=== PATIENT | male | born 1990 | race African-American/Black ===

== ENCOUNTER 2016-07-05 11:30 | Emergency (ER) | payer SELFPAY ==
[2016-07-05 11:35] VITALS: BP 126/73
--- NOTE | 2016-07-05 12:04 | ER Document Report ---
ED Medical Screen (RME) - General Stated Complaint: HEADACHE Mode of Arrival: Ambulatory Information source: Patient Notes: Patient presents to the emergency department with complaints of headache for 10 days. Denies trauma I have greeted and performed a rapid initial assessment of this patient. A comprehensive ED assessment and evaluation of the patient, analysis of test results and completion of the medical decision making process will be conducted by additional ED providers. TRAVEL OUTSIDE OF THE [place] 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
[2016-07-05] MEDS ORDERED: IBUPROFEN 600 MG TABLET PO ONE (12:39)
[2016-07-05] MEDS ORDERED: PROCHLORPERAZINE MALEATE 10 MG TABLET PO ONE (12:39)
[2016-07-05] MEDS ORDERED: DIPHENHYDRAMINE HCL 50 MG CAPSULE PO ONE (12:39)
--- NOTE | 2016-07-05 12:45 | ER Document Report ---
ED Headache - General Chief Complaint: Headache Stated Complaint: HEADACHE Time seen by provider: 12:40 Mode of Arrival: Ambulatory Information source: Patient Notes: 25 yo male presents to ed for headache for 9 days . States he has been taking aleve and advil with no relief. Has a history of migraines. TRAVEL OUTSIDE OF THE [place] IN LAST 30 DAYS: No - HPI Patient complains to provider of: "Migraine" Patient reports: Hx chronic headaches Onset: Just prior to arrival Onset was: Cannot pinpoint Timing: Still present Quality of pain: No pain Severity: Severe Pain Level: 5 Associated symptoms: Other Exacerbated by: Light, Noise Similar symptoms previously: Yes Recently seen / treated by doctor: No - Related Data Allergies/Adverse Reactions: No Known Allergies Allergy (Verified 07/05/16 12:05) Past Medical History - General Information source: Patient - Social History Smoking Status: Never Smoker Chew tobacco use (# tins/day): No Frequency of alcohol use: None Drug Abuse: None Lives with: Spouse/Significant other Family History: Arthritis, DM, Hypertension Patient has suicidal ideation: No Patient has homicidal ideation: No - Past Medical History Cardiac Medical History: Reports: None Pulmonary Medical History: Reports: None EENT Medical History: Reports: None Neurological Medical History: Reports: Hx Migraine Endocrine Medical History: Reports: None Renal/ Medical History: Reports: None. Denies: Hx Peritoneal Dialysis Malignancy Medical History: Reports None GI Medical History: Reports: None Musculoskeltal Medical History: Reports Hx Arthritis - to both hands Skin Medical History: Reports Hx MRSA Psychiatric Medical History: Reports: None Traumatic Medical History: Reports: None Infectious Medical History: Reports: Hx MRSA Surgical Hx: Negative Past Surgical History: Reports: None - Immunizations Immunizations up to date: Yes Hx Diphtheria, Pertussis, Tetanus Vaccination: Yes Review of Systems - Review of Systems Constitutional: No symptoms reported EENT: No symptoms reported Cardiovascular: No symptoms reported Respiratory: No symptoms reported Gastrointestinal: No symptoms reported Genitourinary: No symptoms reported Male Genitourinary: No symptoms reported Musculoskeletal: No symptoms reported Skin: No symptoms reported Hematologic/Lymphatic: No symptoms reported Neurological/Psychological: Headaches -: Yes All other systems reviewed and negative Physical Exam - Vital signs Vitals: Temp Pulse Resp BP Pulse Ox 98.3 F 61 16 126/73 H 98 07/05/16 11:34 07/05/16 11:34 07/05/16 11:34 07/05/16 11:34 07/05/16 11:34 Interpretation: Normal - General General appearance: Appears well, Alert - HEENT Head: Normocephalic, Atraumatic Eyes: Normal Pupils: PERRL Visual villagran normal: Yes Ears: Normal External canal: Normal Tympanic membrane: Normal Sinus: Normal Nasal: Normal Mouth/Lips: Normal Pharynx: Normal Neck: Normal - Respiratory Respiratory status: No respiratory distress Chest status: Nontender Breath sounds: Normal Chest palpation: Normal - Cardiovascular Rhythm: Regular Heart sounds: Normal auscultation Murmur: No - Abdominal Inspection: Normal Distension: No distension Bowel sounds: Normal Tenderness: Nontender Organomegaly: No organomegaly - Back Back: Normal, Nontender - Extremities General upper extremity: Normal inspection, Nontender, Normal color, Normal ROM , Normal temperature General lower extremity: Normal inspection, Nontender, Normal color, Normal ROM , Normal temperature, Normal weight bearing. 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 Cranial nerves grossly intact, speaking freely. This able to stand reflexes normal. Patient was treated with Compazine Benadryl and ibuprofen in the emergency room and given a prescription for Compazine and ibuprofen for home use for headaches. Patient instructed to follow-up with his primary doctor within the next 2-3 days. - Vital Signs Vital signs: Temp Pulse Resp BP Pulse Ox 98.3 F 61 16 126/73 H 98 07/05/16 11:34 07/05/16 11:34 07/05/16 11:34 07/05/16 11:34 07/05/16 11:34 Discharge - Discharge Clinical Impression: Migraine Qualifiers: Migraine type: unspecified Status migrainosus presence: without status migrainosus Intractability: not intractable Qualified Code(s): G43.909 - Migraine, unspecified, not intractable, without status migrainosus Condition: Stable Disposition: HOME, SELF-CARE Instructions: Family Physicians / Practices Additional Instructions: HEADACHE: The physician does not feel that the headache you are experiencing has a serious underlying cause. Most headaches are due to emotional stress, with resultant muscle tension (tension headache). Occasionally, headaches are secondary to changes in the blood vessels of the scalp (vascular headache and migraine headache). Sometimes, a headache is the first symptom of another developing illness, such as a viral infection. You have no evidence of stroke, bleeding, meningitis, or other serious cause of your headache. The treatment of headaches varies with the severity and cause of the pain. Not all headaches need pain shots. In fact, there is evidence that using narcotics for headaches may make them worse in the long run. The physician will determine the therapy that's in your best interest. If you develop a fever, if the headache is different from any you've previously experienced, or if the headache progressively worsens, then call your physician at once or go to the emergency room. USE OF DIPHENHYDRAMINE: Diphenhydramine (Benadryl) is an antihistamine and has been recommended to help treat your headache and to prevent side effects of other medications used to treat headaches. The medication can be repeated four times daily. Age Elixir (12.5 mg/tsp) 25 mg pill adult 1-2 tabs Antihistamines may cause drowsiness, especially with the first dose. Do not operate machinery or drive while under the effects of the medication. Do not combine the medication with alcohol, or with any other medication without talking to your doctor. Ibuprofen Ibuprofen is an excellent, safe drug for pain control. In addition, it has potent antiinflammatory effects which are beneficial, especially in the treatment of injuries, arthritis, or tendonitis. It's best to take ibuprofen with food. Persons with ulcer disease or allergy to aspirin should notify their physician of this before taking ibuprofen. Take the medication exactly as prescribed. Don't take additional doses unless instructed to do so by your doctor. If you develop wheezing, shortness of breath, hives, faintness, stomach pain, vomiting, or dark black stools, return for re-evaluation at once. COMPAZINE FOR HEADACHE: You have received therapy for headaches, using Compazine. This treatment is dramatically successful in relieving the headache in about 50 percent of cases. When it works, it provides a rapid method of eliminating the headache without resorting to narcotics (and the problems associated with them). Most patients still feel fully alert after the Compazine, but others may be slightly drowsy. It's best not to drive or work with machinery for six to eight hours. Do not take alcohol or other medication unless you discuss it with the doctor. If you develop tightness and spasms in your muscles, especially the neck and tongue, you should return. This is a side effect which can be treated. FOLLOW-UP CARE: If you have been referred to a physician for follow-up care, call the physician s office for an appointment as you were instructed or within the next two days. If you experience worsening or a significant change in your symptoms, notify the physician immediately or return to the Emergency Department at any time for re-evaluation. Prescriptions: Ibuprofen 600 mg PO Q6HP PRN #20 tablet PRN Reason: Prochlorperazine Maleate [Compazine 10 mg Tablet] 10 mg PO Q6HP PRN #10 tablet PRN Reason: Forms: Elevated Blood Pressure, Return to Work
== END 2016-07-05 12:59 | disposition home or self-care (01) ==
LOC: ER 11:30
DX: G43.909 Migraine, unspecified, not intractable, without status migrainosus (principal)
CPT/HCPCS: 99283; 82962; S0183

== ENCOUNTER 2016-07-12 17:36 | Emergency (ER) | payer SELFPAY ==
[2016-07-12 18:14] VITALS: BP 118/68
[2016-07-12] MEDS ORDERED: METOCLOPRAMIDE HCL 10 MG TABLET PO ONE (18:19)
[2016-07-12] MEDS ORDERED: DIPHENHYDRAMINE HCL 25 MG CAPSULE PO ONE (18:19)
--- NOTE | 2016-07-12 18:26 | ER Document Report ---
ED Medical Screen (RME) - General Chief Complaint: Headache Stated Complaint: HEADACHE Mode of Arrival: Ambulatory Information source: Patient Notes: 25 y/o M presents to ED c/o intermittently persistent headache over the last 2 weeks. Reports hx of migraine headaches. States was seen in ED 4 days ago but states symptoms not improved. I have greeted and performed a rapid initial assessment of this patient. A comprehensive ED assessment and evaluation of the patient, analysis of test results and completion of the medical decision making process will be conducted by additional ED providers. TRAVEL OUTSIDE OF THE [place] 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 - to both hands Skin Medical History: Reports Hx MRSA Infectious Medical History: Reports: Hx MRSA - Immunizations Immunizations up to date: Yes Hx Diphtheria, Pertussis, Tetanus Vaccination: Yes Physical Exam - Vital signs Vitals: Temp Pulse Resp BP Pulse Ox 98.9 F 69 14 118/68 98 07/12/16 18:14 07/12/16 18:14 07/12/16 18:14 07/12/16 18:14 07/12/16 18:14 - General General appearance: Appears well, Alert In distress: None - Neurological Neuro grossly intact: Yes Cognition: Normal Orientation: AAOx4 [place] Coma Scale Eye Opening: Spontaneous Christa Coma Scale Verbal: Oriented Christa Coma Scale Motor: Obeys Commands [place] Coma Scale Total: 15 Speech: Normal Motor strength normal: LUE, RUE, LLE, RLE Course - Vital Signs Vital signs: Temp Pulse Resp BP Pulse Ox 98.9 F 69 14 118/68 98 07/12/16 18:14 07/12/16 18:14 07/12/16 18:14 07/12/16 18:14 07/12/16 18:14
== END 2016-07-12 21:00 | disposition left against medical advice (07) ==
LOC: ER 17:36
DX: R51 Headache (principal); Z86.69 Personal history of other diseases of the nervous system and sense organs; Z86.14 Personal history of Methicillin resistant Staphylococcus aureus infection; Z53.20 Procedure and treatment not carried out because of patient's decision for unspecified reasons
CPT/HCPCS: 99281

== ENCOUNTER 2016-10-17 13:49 | Emergency (ER) | payer SELFPAY ==
[2016-10-17 13:58] VITALS: BP 132/80
--- NOTE | 2016-10-17 14:23 | ER Document Report ---
HPI - HPI Patient complains to provider of: insect bite Onset: Yesterday Onset/Duration: Sudden Quality of pain: Achy Pain Level: 2 Associated Symptoms: None Exacerbated by: Denies Relieved by: Denies Similar symptoms previously: No Recently seen / treated by doctor: No - REPRODUCTIVE Reproductive: DENIES: : - DERM Skin Color: Normal Past Medical History - General Information source: Patient - Social History Smoking Status: Unknown if Ever Smoked Cigarette use (# per day): No Frequency of alcohol use: None Drug Abuse: None Family History: Arthritis, DM, Hypertension Patient has suicidal ideation: No Patient has homicidal ideation: No Neurological Medical History: Reports: Hx Migraine Renal/ Medical History: Denies: Hx Peritoneal Dialysis Musculoskeltal Medical History: Reports Hx Arthritis - to both hands Skin Medical History: Reports Hx MRSA Infectious Medical History: Reports: Hx MRSA - Immunizations Immunizations up to date: Yes Hx Diphtheria, Pertussis, Tetanus Vaccination: Yes Vertical Provider Document - CONSTITUTIONAL Agree With Documented VS: Yes Exam Limitations: No Limitations General Appearance: WD/WN, No Apparent Distress - INFECTION CONTROL TRAVEL OUTSIDE OF THE [place] IN LAST 30 DAYS: No - HEENT HEENT: Atraumatic, Normocephalic - NECK Neck: Supple - RESPIRATORY Respiratory: No Respiratory Distress O2 Sat by Pulse Oximetry: 97 - CARDIOVASCULAR Cardiovascular: Regular Rate - MUSCULOSKELETAL/EXTREMETIES Musculoskeletal/Extremeties: MAEW, FROM, Non-Tender - Slightly swollen erythemic area noted to the right volar area of his forearm. No pustule no induration no warmth, good radial pulse, brisk cap refill - NEURO Level of Consciousness: Awake, Alert, Appropriate - DERM Integumentary: Warm, Dry Course - Re-evaluation Re-evalutation: 10/17/16 14:36 Pt instructed on Benadryl. Patient also was instructed on signs and symptoms of an abscess and instructed to return to the emergency department for symptoms of infection. He verbalized understanding to all instructions. - Vital Signs Vital signs: Temp Pulse Resp BP Pulse Ox 99.1 F 79 14 132/80 H 97 10/17/16 13:56 10/17/16 13:56 10/17/16 13:56 10/17/16 13:56 10/17/16 13:56 Discharge - Discharge Clinical Impression: Insect bite, Elevated blood pressure reading Condition: Stable Disposition: HOME, SELF-CARE Instructions: Insect Bites ([facility]), Use of Diphenhydramine Additional Instructions: *You have been treated for a insect bite *Take benadryl as indicated *Monitor the site for signs of infection such as increasing pain, redness, swelling, warmth *Ice packs *Follow up with a primary care provider within one week for recheck *Return to ED for signs of infection, worsening condition, changes, needs Monitor your blood pressure. Your blood pressure was elevated today. This may be because you were anxious, in pain or because you need medication. It is important to follow up with your primary care provider for full evaluation. Forms: Elevated Blood Pressure
[2016-10-17] MEDS ORDERED: DIPHENHYDRAMINE HCL 25 MG CAPSULE PO ONE (14:25)
== END 2016-10-17 14:30 | disposition home or self-care (01) ==
LOC: ER 13:49
DX: T14.8 Other injury of unspecified body region (principal); W57.XXXA Bitten or stung by nonvenomous insect and other nonvenomous arthropods, initial encounter; L53.9 Erythematous condition, unspecified; R03.0 Elevated blood-pressure reading, without diagnosis of hypertension; Z86.14 Personal history of Methicillin resistant Staphylococcus aureus infection
CPT/HCPCS: 99283

== ENCOUNTER 2016-11-03 14:42 | Emergency (ER) | payer SELFPAY ==
[2016-11-03 14:47] VITALS: BP 125/77
--- NOTE | 2016-11-03 15:00 | ER Document Report ---
ED General - General Chief Complaint: Leg Pain Stated Complaint: LEFT LEG PAIN Time Seen by Provider: 11/03/16 14:50 Mode of Arrival: Ambulatory Information source: Patient TRAVEL OUTSIDE OF THE [place] IN LAST 30 DAYS: No - HPI Onset: Just prior to arrival - 25-year-old male presents to the emergency room today stating that he had spasm to his left anterior thigh for the last 6 hours. He states he was doing yard work yesterday. - Related Data Allergies/Adverse Reactions: No Known Allergies Allergy (Verified 11/03/16 14:45) Past Medical History - General Information source: Patient - Social History Smoking Status: Never Smoker Cigarette use (# per day): No Chew tobacco use (# tins/day): No Smoking Education Provided: No Family History: Arthritis, DM, Hypertension Patient has suicidal ideation: No Patient has homicidal ideation: No Neurological Medical History: Reports: Hx Migraine Renal/ Medical History: Denies: Hx Peritoneal Dialysis Musculoskeltal Medical History: Reports Hx Arthritis - to both hands Skin Medical History: Reports Hx MRSA Infectious Medical History: Reports: Hx MRSA - Immunizations Immunizations up to date: Yes Hx Diphtheria, Pertussis, Tetanus Vaccination: Yes Review of Systems - Review of Systems Constitutional: No symptoms reported EENT: No symptoms reported Cardiovascular: No symptoms reported Respiratory: No symptoms reported Gastrointestinal: No symptoms reported Genitourinary: No symptoms reported Male Genitourinary: No symptoms reported Musculoskeletal: No symptoms reported Skin: No symptoms reported Hematologic/Lymphatic: No symptoms reported Neurological/Psychological: No symptoms reported Physical Exam - Vital signs Vitals: Temp Pulse Resp BP Pulse Ox 98.5 F 74 20 125/77 97 11/03/16 14:45 11/03/16 14:45 11/03/16 14:45 11/03/16 14:45 11/03/16 14:45 Interpretation: Normal - General General appearance: Appears well, Alert - HEENT Head: Normocephalic, Atraumatic Eyes: Normal Pupils: PERRL - Respiratory Respiratory status: No respiratory distress Chest status: Nontender Breath sounds: Normal Chest palpation: Normal - Cardiovascular Rhythm: Regular Heart sounds: Normal auscultation Murmur: No - Abdominal Inspection: Normal Distension: No distension Bowel sounds: Normal Tenderness: Nontender Organomegaly: No organomegaly - Back Back: Normal, Nontender - Extremities General upper extremity: Normal inspection, Nontender, Normal color, Normal ROM , Normal temperature General lower extremity: Normal inspection, Nontender, Normal color, Normal ROM , Normal temperature, Normal weight bearing. No: Miki's sign - Neurological Neuro grossly intact: Yes Cognition: Normal Orientation: AAOx4 [place] Coma Scale Eye Opening: Spontaneous Christa Coma Scale Verbal: Oriented Christa Coma Scale Motor: Obeys Commands [place] Coma Scale Total: 15 Speech: Normal Motor strength normal: LUE, RUE, LLE, RLE Sensory: Normal - Psychological Associated symptoms: Normal affect, Normal mood - Skin Skin Temperature: Warm Skin Moisture: Dry Skin Color: Normal Course - Re-evaluation Re-evalutation: 11/03/16 14:58 Complete evaluation was done of the affected areas had no redness no tenderness no increasing erythema or warmth to the area. He has good distal pulses states that the sensation is spasmodic in nature there is no palpable spasm. He has no tenderness to his lower back. Pain is suggestive that of muscle spasm. He also has no edema to that lower extremity. - Vital Signs Vital signs: Temp Pulse Resp BP Pulse Ox 98.5 F 74 20 125/77 97 11/03/16 14:45 11/03/16 14:45 11/03/16 14:45 11/03/16 14:45 11/03/16 14:45 Discharge - Discharge Clinical Impression: Muscle spasm Disposition: HOME, SELF-CARE Additional Instructions: Muscle Strain You have strained a muscle -- torn the fibers within the muscle. This often occurs with strenuous exertion, or during an injury that suddenly stretches the muscle. The seriousness of a strain varies. Some strains heal within days, others cause problems for months. X-rays cannot show a muscle strain. X-rays are taken only if symptoms suggest that a fracture could be present. The usual treatment of a muscle strain is rest and ice packs. Sometimes, a sling, splint, or crutches may be necessary to rest the muscle. The muscle can be used again once pain subsides. Severe strains require a special exercise and stretching program to prevent permanent stiffness and disability. Your doctor will advise you if this will be necessary. Call the doctor immediately if pain or swelling becomes severe, or if numbness or discoloration develop. Muscle Relaxers Muscle relaxing medications are usually prescribed for acute muscle spasm or injury to the neck and back. They are often combined with antiinflammatory pain medication for increased relief. You may stop the muscle relaxer when the pain and stiffness have improved. Start the medication again if spasms recur. Muscle relaxers may cause drowsiness, especially with the first dose. Do not operate machinery or drive while under the effects of the medication. Most muscle relaxers last up to 24 hours. Do not combine the medication with alcohol. Prescriptions: Methocarbamol [Robaxin 750 mg Tablet] 750 mg PO ASDIR PRN #40 tablet PRN Reason:
== END 2016-11-03 15:08 | disposition home or self-care (01) ==
LOC: ER 14:42
DX: M62.838 Other muscle spasm (principal); M79.605 Pain in left leg; Z86.14 Personal history of Methicillin resistant Staphylococcus aureus infection
CPT/HCPCS: 99283

== ENCOUNTER 2017-03-23 13:49 | Emergency (ER) | payer SELFPAY ==
[2017-03-23 13:57] VITALS: BP 127/66
[2017-03-23] MEDS ORDERED: LORAZEPAM 1 MG TABLET PO ONE (14:54)
[2017-03-23 15:39] LABS: ANION GAP 11 (5-19); BLOOD UREA NITROGEN 18 mg/dL (7-20); CALCIUM 9.8 mg/dL (8.4-10.2); CARBON DIOXIDE 30 mmol/L (22-30); CHLORIDE 105 mmol/L (98-107); CREATINE KINASE 174 U/L (55-170); CREATININE RESULT 0.99 mg/dL (0.52-1.25); GLUCOSE 75 mg/dL (75-110); MAGNESIUM 2.1 mg/dL (1.6-2.3); POTASSIUM 3.8 mmol/L (3.6-5.0); SODIUM 145.7 mmol/L (137-145)
--- NOTE | 2017-03-23 17:10 | ER Document Report ---
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 He is left-handed, he had been painting all day. He noticed that 1 of his fingers was completely flexed and the others were extended and he could not move them without using his other hand to manually bend or straighten the fingers. He reports this has happened in the past from time to time but never this bad. TRAVEL OUTSIDE OF THE [place] 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[employer] Lives with: Family Family History: Arthritis, DM, Hypertension - Medical History Medical History: Negative - Past Medical History Cardiac Medical History: Reports: None Pulmonary Medical History: Reports: None EENT Medical History: Reports: None Neurological Medical History: Reports: Hx Migraine Endocrine Medical History: Reports: None Renal/ Medical History: Reports: None GI Medical History: Reports: None Musculoskeltal Medical History: Reports Hx Arthritis - to both hands Skin Medical History: Reports Hx MRSA Psychiatric Medical History: Reports: None Infectious Medical History: Reports: Hx MRSA Past Surgical History: Reports: None - Immunizations Immunizations up to date: Yes Hx Diphtheria, Pertussis, Tetanus Vaccination: Yes Review of Systems - Review of Systems Constitutional: No symptoms reported EENT: No symptoms reported Cardiovascular: No symptoms reported Respiratory: No symptoms reported Gastrointestinal: No symptoms reported Genitourinary: No symptoms reported Musculoskeletal: See HPI Skin: No symptoms reported Neurological/Psychological: No symptoms reported Physical Exam - Vital signs Vitals: Temp Pulse Resp BP Pulse Ox 99.4 F 59 L 16 127/66 H 98 03/23/17 13:54 03/23/17 13:54 03/23/17 13:54 03/23/17 13:54 03/23/17 13:54 Interpretation: Normal - General General appearance: Appears well, Alert In distress: None - HEENT Head: Normocephalic, Atraumatic Neck: Normal, Supple - Respiratory Respiratory status: No respiratory distress Breath sounds: Normal - Cardiovascular Rhythm: Regular - Abdominal Inspection: Normal Tenderness: Nontender - Back Back: Normal - Extremities General upper extremity: Other - The left upper extremity is held with his elbow in extreme extension, the wrist in extension, the fourth finger is completely flexed at the PIP joint with the fingertip touching the palm while the other fingers are in hyperextension. There is spasm of the volar forearm muscles and spasm of the biceps muscle. General lower extremity: Normal inspection Notes: Manually flex the elbow, and pronated the forearm, I was then able to flex all of the fingers at the MCP PIP and DIP joints wanted to time and then holding each 1 in that position as the next was done. I then had the patient place his forearm across his abdomen with the fingers and wrist flexed and the elbow flexed. - Neurological Neuro grossly intact: Yes - Psychological Associated symptoms: Normal affect, Normal mood - Skin Skin Temperature: Warm Skin Moisture: Dry Skin Color: Normal Course - Re-evaluation Re-evalutation: 03/23/17 17:12 After the patient had his elbow, wrist, and all the finger joints flexed, he was given 2 mg of Ativan and lab work was done. About one half hours later when I checked on the patient, he was sleeping with his hand between his knees laying on his side, with his elbow extended. I woke him up to flex the joints again. At this time he does try to hyperextend all the fingers, but he is able to actively flex the fingers of the left hand. He will be discharged with a volar cock-up splint, a sling, and muscle relaxers. 03/23/17 17:35 The Velcro volar cock-up splint and the sling were placed on the left upper extremity by the PCT. When I went to check on the placement, I found the patient sitting up and actively opening and closing his fist and doing much better than he was previously. It seems using the cockup splint and forcing the elbow into flexion is helping his spasms quite a bit. - Vital Signs Vital signs: Temp Pulse Resp BP Pulse Ox 99.4 F 59 L 16 127/66 H 98 03/23/17 13:54 03/23/17 13:54 03/23/17 13:54 03/23/17 13:54 03/23/17 13:54 - Laboratory Result Diagrams: 03/23/17 15:13 Laboratory results interpreted by me: 03/23/17 15:13 Sodium 145.7 H Creatine Kinase 174 H Discharge - Discharge Clinical Impression: Muscle spasm Condition: Stable Additional Instructions: He seem to be having extensor spasms to the joints in your left upper extremity. We will try using a volar cock-up splint for your hand and wrist, and a sling for support and to keep the elbow in flexion. Take muscle relaxers as prescribed. Take Tylenol or ibuprofen for pain if needed. Try not to use the left hand for anything for the next few days. Follow-up with [facility] orthopedic group Saturday if not improving. RETURN TO THE EMERGENCY ROOM IF ANY NEW OR WORSENING SYMPTOMS. Prescriptions: Cyclobenzaprine HCl [Flexeril 5 mg Tablet] 5 mg PO TID PRN #15 tablet PRN Reason: Referrals: [facility] [Provider Group] - Follow up as needed
== END 2017-03-23 17:48 | disposition home or self-care (01) ==
LOC: ER 13:49
DX: M62.838 Other muscle spasm (principal)
CPT/HCPCS: 99283; 36415; 82550; 83735; 80048; L3908

== ENCOUNTER 2017-06-02 15:20 | Emergency (ER) | payer OTHER ==
[2017-06-02 15:29] VITALS: BP 129/69
[2017-06-02] MEDS ORDERED: KETOROLAC TROMETHAMINE 60 MG/2 ML SDV IM ONE (15:42)
[2017-06-02] MEDS ORDERED: DEXAMETHASONE SOD PHOS INJ 10 MG/1 ML VIAL IM ONE (15:42)
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
== END 2017-06-02 17:01 | disposition home or self-care (01) ==
LOC: ER 15:20
DX: M79.604 Pain in right leg (principal); R51 Headache; R42 Dizziness and giddiness; M54.2 Cervicalgia; V87.7XXA Person injured in collision between other specified motor vehicles (traffic), initial encounter; Z87.891 Personal history of nicotine dependence
CPT/HCPCS: 99284; 96372; 73590; J1885; J1100

== ENCOUNTER 2017-06-04 09:33 | Emergency (ER) | payer OTHER ==
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
[2017-06-04 10:51] VITALS: BP 120/64
== END 2017-06-04 10:51 | disposition home or self-care (01) ==
LOC: ER 09:33
DX: S16.1XXA Strain of muscle, fascia and tendon at neck level, initial encounter (principal); S39.012A Strain of muscle, fascia and tendon of lower back, initial encounter; V49.40XA Driver injured in collision with unspecified motor vehicles in traffic accident, initial encounter
CPT/HCPCS: 99283

== ENCOUNTER 2017-06-08 14:30 | Emergency (ER) | payer OTHER ==
[2017-06-08 14:36] VITALS: BP 127/69
[2017-06-08] MEDS ORDERED: CYCLOBENZAPRINE HCL 10 MG TABLET PO ONE (15:50)
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
[2017-06-08] MEDS ORDERED: TETRACAINE HCL 0.5% OPH SOLN 2 ML OU ONE (17:33)
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
== END 2017-06-08 18:15 | disposition home or self-care (01) ==
LOC: ER 14:30
DX: S16.1XXA Strain of muscle, fascia and tendon at neck level, initial encounter (principal); S39.012A Strain of muscle, fascia and tendon of lower back, initial encounter; V49.40XA Driver injured in collision with unspecified motor vehicles in traffic accident, initial encounter; R51 Headache; H53.149 Visual discomfort, unspecified; H53.8 Other visual disturbances; M54.89 Other dorsalgia; M54.2 Cervicalgia
CPT/HCPCS: 70450; 72070; 72125; 99283

== ENCOUNTER 2017-07-10 20:31 | Emergency (ER) | payer OTHER ==
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
[2017-07-10 23:01] VITALS: BP 131/77
== END 2017-07-10 23:00 | disposition home or self-care (01) ==
LOC: ER 20:31
DX: S16.1XXA Strain of muscle, fascia and tendon at neck level, initial encounter (principal); M62.830 Muscle spasm of back; M54.9 Dorsalgia, unspecified; V49.9XXA Car occupant (driver) (passenger) injured in unspecified traffic accident, initial encounter
CPT/HCPCS: 99283

== ENCOUNTER 2018-01-30 20:10 | Emergency (ER) | payer OTHER ==
[2018-01-30] MEDS ORDERED: TETRACAINE HCL 0.5% OPH SOLN 2 ML OD ONE (21:28)
--- NOTE | 2018-01-30 21:52 | ER Document Report ---
ED Eye Complaint - General Chief Complaint: Eye Pain Stated Complaint: EYE PAIN Time Seen by Provider: 01/30/18 21:09 Mode of Arrival: Ambulatory Information source: Patient Notes: 27-year-old male presents to ED for red eye with blurry vision 1 day. He states he noticed the pain when he woke up. He states his eye has been tearing more. He denies any new trauma to the eye. Patient is alert and oriented respirations regular and unlabored denies any other symptoms. TRAVEL OUTSIDE OF THE [place] IN LAST 30 DAYS: No - HPI Onset: Just prior to arrival Eye location: Right Injury: No Quality of pain: Burning Associated symptoms: Burning, Itching, Pain, Other - Patient have his small insect bite to the bottom lid of the right eye. 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 Lives with: Alone Family History: Arthritis, DM, Hypertension, Malignancy Patient has suicidal ideation: No Patient has homicidal ideation: No - Past Medical History Cardiac Medical History: Reports: None Pulmonary Medical History: Reports: None EENT Medical History: Reports: None Neurological Medical History: Reports: Hx Migraine Endocrine Medical History: Reports: None Malignancy Medical History: Reports None GI Medical History: Reports: None Musculoskeletal Medical History: Reports Hx Arthritis - to both hands, Reports Hx Musculoskeletal Deformity - Carpal tunnel, Reports Hx Musculoskeletal Trauma Skin Medical History: Reports Hx MRSA Psychiatric Medical History: Reports: Hx Anxiety, Hx Bipolar Disorder, Hx Depression Traumatic Medical History: Reports: Hx Fractures - Fractured legs both legs Infectious Medical History: Reports: Hx MRSA - Immunizations Immunizations up to date: Yes Hx Diphtheria, Pertussis, Tetanus Vaccination: Yes Review of Systems - Review of Systems Constitutional: No symptoms reported EENT: Eye pain, Blurred vision. denies: Eye discharge Cardiovascular: No symptoms reported Respiratory: No symptoms reported Gastrointestinal: No symptoms reported Genitourinary: No symptoms reported Male Genitourinary: No symptoms reported Musculoskeletal: No symptoms reported Skin: No symptoms reported Hematologic/Lymphatic: No symptoms reported Neurological/Psychological: No symptoms reported Physical Exam - Vital signs Vitals: Temp Pulse Resp BP Pulse Ox 99.0 F 62 16 119/66 96 01/30/18 20:26 01/30/18 20:26 01/30/18 20:26 01/30/18 20:26 01/30/18 20:26 Interpretation: Normal - General General appearance: Appears well, Alert - HEENT Head: Normocephalic, Atraumatic Eyes: Normal. No: Pale conjunctiva, Periorbital ecchymosis, Periorbital edema, Scleral icterus, Tears Conjunctiva: Injected - Patient states he has been rubbing his eye constantly since he woke up. No: Purulent discharge Cornea: No: Corneal abrasion, Corneal ulcer, Dendrite, Embedded foreign body, Flourescein stain uptake, Opacified, Superficial foreign body Eyelashes: Normal Pupils: PERRL Visual acuity- Right eye: 20/70 Visual acuity- Left eye: 20/30 Visual acuity- Both eyes: 20/30 Corrective lenses worn: No Ears: Normal External canal: Normal Tympanic membrane: Normal Sinus: Normal Nasal: Normal Mouth/Lips: Normal Mucous membranes: Normal Pharynx: Normal Neck: Normal - Respiratory Respiratory status: No respiratory distress Chest status: Nontender Breath sounds: Normal Chest palpation: Normal - Cardiovascular Rhythm: Regular Heart sounds: Normal auscultation Murmur: No - Abdominal Inspection: Normal Distension: No distension Bowel sounds: Normal Tenderness: Nontender Organomegaly: No organomegaly - Back Back: Normal, Nontender - Extremities General upper extremity: Normal inspection, Nontender, Normal color, Normal ROM , Normal temperature General lower extremity: Normal inspection, Nontender, Normal color, Normal ROM , Normal temperature, Normal weight bearing. No: Miki's sign - Neurological Neuro grossly intact: Yes Cognition: Normal Orientation: AAOx4 Christa Coma Scale Eye Opening: Spontaneous Christa Coma Scale Verbal: Oriented Christa Coma Scale Motor: Obeys Commands [place] Coma Scale Total: 15 Speech: Normal Motor strength normal: LUE, RUE, LLE, RLE Sensory: Normal - Psychological Associated symptoms: Normal affect, Normal mood - Skin Skin Temperature: Warm Skin Moisture: Dry Skin Color: Normal Course - Re-evaluation Re-evalutation: 01/31/18 02:13 There are no signs or symptoms of corneal abrasion or conjunctivitis on his examination. There is no fluorescein uptake and after his eye was anesthetized with tetracaine, fluorescein was used in his eye, and then rinsed out with saline, the patient stated there was very little pain in his eye and his eye was no longer red. Patient states his vision was much clear after his eye was rinsed out with saline. Patient was discharged home with instructions to follow -up with ophthalmology. - Vital Signs Vital signs: Temp Pulse Resp BP Pulse Ox 98.5 F 63 16 124/76 99 01/30/18 21:57 01/30/18 21:57 01/30/18 21:57 01/30/18 21:57 01/30/18 21:57 Discharge - Discharge Clinical Impression: insect bite right lower eye lid Condition: Stable Disposition: HOME, SELF-CARE Instructions: Family Physicians / Practices Additional Instructions: You were seen today for complaint of pain to the right eye. Your eye has been examined and there is no corneal abrasions no problems with your right eye. There is an insect bite that you have been scratching and rubbing on your right eyelid. He stated after the saline was used to register I doubt you are no longer having any pain. EYEDROP USE: Eyedrops are most easily applied by pulling down on the cheek just below the lower eyelid. The lower lid will pop out to form a pouch into which you can drop the medicine. A small brief sting is not unusual, especially if the eye is reddened and irritated already. Use the drops exactly as recommended. You should see the doctor at once if there is a decrease in vision, swelling of the eye, or an increase in discomfort. Acetaminophen Acetaminophen may be taken for pain relief or fever control. It's much safer than aspirin, offering a wider range of "safe" dosages. It is safe during . Some brand names are Tylenol, Panadol, Datril, Anacin 3, Tempra, and Liquiprin. Acetaminophen can be repeated every four hours. The following are maximum recommended dosages: WEIGHT Dose Drops Elixir Chewable( 80mg) (LBS.) drprs=droppers tsp=teaspoon 6 40 mg .4 ml (1/2) 6-11 80 mg .8 ml (full) 1/2 tsp 1 tab 12-16 120 mg 1 1/2 drprs 3/4 tsp 1 1/2 tabs 17-23 160 mg 2 drprs 1 tsp 2 tabs 24-30 240 mg 3 drprs 1 1/2 tsp 3 tabs 30-35 320 mg 2 tsp 4 tabs 36-41 360 mg 2 1/4 tsp 4 1 /2 tabs 42-47 400 mg 2 1/2 tsp 5 tabs 48-53 480 mg 3 tsp 6 tabs 54-59 520 mg 3 1/4 tsp 6 1 /2 tabs 60-64 560 mg 3 1/2 tsp 7 tabs 65-70 600 mg 3 3/4 tsp 7 1 /2 tabs 71-76 640 mg 4 tsp 8 tabs 77-82 720 mg 4 1/2 tsp 9 tabs 83-88 800 mg 5 tsp 10 tabs >89 pounds or adults 650 mg to 900 mg Acetaminophen can be repeated every four hours. Maximum daily dose not to exceed 4000 mg. These maximum recommended dosages are slightly higher than the dosages written on the product container, but these dosages are very safe and well below the toxic dosage for acetaminophen. For the discomfort you can apply cool compresses to the eye. Please stop scratching the eye as this is irritating the eye and you can cause a corneal abrasion. There is no corneal abrasion at this time. FOLLOW-UP CARE: If you have been referred to a physician for follow-up care, call the physician s office for an appointment as you were instructed or within the next two days. If you experience worsening or a significant change in your symptoms, notify the physician immediately or return to the Emergency Department at any time for re-evaluation. Forms: Return to Work Referrals: TEZ GORDON, DO [ACTIVE STAFF] - Follow up as needed
[2018-01-30 21:57] VITALS: BP 124/76
== END 2018-01-30 21:58 | disposition home or self-care (01) ==
LOC: ER 20:10
DX: S00.261A Insect bite (nonvenomous) of right eyelid and periocular area, initial encounter (principal); W57.XXXA Bitten or stung by nonvenomous insect and other nonvenomous arthropods, initial encounter; H53.8 Other visual disturbances; Z86.14 Personal history of Methicillin resistant Staphylococcus aureus infection
CPT/HCPCS: 99283

== ENCOUNTER 2018-02-11 12:43 | Emergency (ER) | payer OTHER ==
[2018-02-11 13:01] VITALS: BP 129/69
[2018-02-11] MEDS ORDERED: IBUPROFEN 800 MG TABLET PO ONE (13:35)
--- NOTE | 2018-02-11 13:36 | ER Document Report ---
ED Skin Rash/Insect Bite/Abscs - General Chief Complaint: Leg Pain Stated Complaint: POSSIBLE INSECT BITE/LEFT LEG Time Seen by Provider: 02/11/18 13:10 Mode of Arrival: Ambulatory Information source: Patient Notes: 27-year-old male presents to ED for complaint of a bug bite to the lower left leg that occurred while working in the [employer] an hour before coming to the emergency room. He states he was sure that it was a spider even though he did not see the bug. TRAVEL OUTSIDE OF THE [place] IN LAST 30 DAYS: No - HPI Patient complains to provider of: Insect sting Onset: Just prior to arrival Onset/Duration: Sudden Quality of pain: Other - Itchy sharp Severity: Moderate Pain Level: 4 Skin Character: Papules Identify cause: Yes - He states it was an insect bite Exacerbated by: Denies Relieved by: Denies Similar symptoms previously: Yes Recently seen / treated by doctor: No - Related Data Allergies/Adverse Reactions: No Known Allergies Allergy (Verified 02/11/18 12:45) Past Medical History - General Information source: Patient - Social History Smoking Status: Never Smoker Cigarette use (# per day): No Chew tobacco use (# tins/day): No Smoking Education Provided: No Frequency of alcohol use: None Drug Abuse: None Lives with: Family Family History: Arthritis, DM, Hypertension, Malignancy Patient has suicidal ideation: No Patient has homicidal ideation: No - Past Medical History Cardiac Medical History: Reports: None Pulmonary Medical History: Reports: None EENT Medical History: Reports: None Neurological Medical History: Reports: Hx Migraine Endocrine Medical History: Reports: None Renal/ Medical History: Reports: None Malignancy Medical History: Reports None GI Medical History: Reports: None Musculoskeletal Medical History: Reports Hx Arthritis - to both hands, Reports Hx Musculoskeletal Deformity - Carpal tunnel, Reports Hx Musculoskeletal Trauma Skin Medical History: Reports Hx MRSA Psychiatric Medical History: Reports: Hx Anxiety, Hx Bipolar Disorder, Hx Depression Traumatic Medical History: Reports: Hx Fractures - Fractured legs both legs Infectious Medical History: Reports: Hx MRSA Surgical Hx: Negative Past Surgical History: Reports: None - Immunizations Immunizations up to date: Yes Hx Diphtheria, Pertussis, Tetanus Vaccination: Yes Review of Systems - Review of Systems Constitutional: No symptoms reported EENT: No symptoms reported Cardiovascular: No symptoms reported Respiratory: No symptoms reported Gastrointestinal: No symptoms reported Genitourinary: No symptoms reported Male Genitourinary: No symptoms reported Musculoskeletal: No symptoms reported Skin: Other - Insect bite left lower leg Hematologic/Lymphatic: No symptoms reported Neurological/Psychological: No symptoms reported Physical Exam - Vital signs Vitals: Temp Pulse Resp BP Pulse Ox 99.0 F 55 L 16 129/69 H 98 02/11/18 12:59 02/11/18 12:59 02/11/18 12:59 02/11/18 12:59 02/11/18 12:59 Interpretation: Normal - General General appearance: Appears well, Alert - HEENT Head: Normocephalic, Atraumatic Eyes: Normal Pupils: PERRL - Respiratory Respiratory status: No respiratory distress Chest status: Nontender Breath sounds: Normal Chest palpation: Normal - Cardiovascular Rhythm: Regular Heart sounds: Normal auscultation Murmur: No - Abdominal Inspection: Normal Distension: No distension Bowel sounds: Normal Tenderness: Nontender Organomegaly: No organomegaly - Back Back: Normal, Nontender - Extremities General upper extremity: Normal inspection, Nontender, Normal color, Normal ROM , Normal temperature General lower extremity: Normal color, Normal ROM, Normal temperature, Normal weight bearing. No: Miki's sign Calf: Tender - Very small insect bite to left lower leg - Neurological Neuro grossly intact: Yes Cognition: Normal Orientation: AAOx4 Christa Coma Scale Eye Opening: Spontaneous Christa Coma Scale Verbal: Oriented Christa Coma Scale Motor: Obeys Commands [place] Coma Scale Total: 15 Speech: Normal Motor strength normal: LUE, RUE, LLE, RLE Sensory: Normal - Psychological Associated symptoms: Normal affect, Normal mood - Skin Skin Temperature: Warm Skin Moisture: Dry Skin Color: Normal Character of irregularity: Papular Irregularity with: Tenderness - Left lower leg Course - Vital Signs Vital signs: Temp Pulse Resp BP Pulse Ox 99.0 F 55 L 16 129/69 H 98 02/11/18 12:59 02/11/18 12:59 02/11/18 12:59 02/11/18 12:59 02/11/18 12:59 Discharge - Discharge Clinical Impression: Insect bite Qualifiers: Encounter type: initial encounter Qualified Code(s): W57.XXXA - Bitten or stung by nonvenomous insect and other nonvenomous arthropods, initial encounter Condition: Stable Disposition: HOME, SELF-CARE Instructions: Family Physicians / Practices Additional Instructions: Insect Bites You have been bitten by an insect. These bites can cause two types of swelling: an initial swelling due to insect saliva or injected poison, and a late reaction due to your body's allergic reaction. This initial local reaction may be uncomfortable but is not dangerous. Often there's an itchy "hive" at the bite location. This is treated with antihistamines, cold compresses, and resting the affected body part. The later reaction often develops about the second day. The entire area becomes very swollen, red, itchy, and tender. This is an allergic reaction. Your body is attacking the leftover insect saliva or venom. This type of allergy is unpleasant, but not dangerous. We treat this swelling with cortisone -type medicine. Sometimes we use antibiotics if we're worried about infection. Antihistamines help with the itch. If you develop a fever, chills, a red streak, or swollen glands in the area of the bite, infection may be starting. Return at once. ACID-SUPPRESSING MEDICATION: These medications sometimes are suggested for allergic reactions because they have anti-histaminic effects and relieve the rash and itching of the reaction. There are usually no side effects from this medication. But, in rare cases and particularly in the elderly, serious problems can occur. Contact your doctor if there is fever, rash, hallucinations, confusion, or unusual bruising. Contact your doctor at once if you develop lightheadedness, black or bloody stool, or bloody vomitus. ANTIHISTAMINES: An antihistamine has been given and/or prescribed to control your symptoms. Antihistamines are used for many reasons, including itching, watering eyes, runny nose, allergic swelling, hives, and insect stings. Antihistamines may cause drowsiness, especially with the first dose. Do not operate machinery or drive while under the effects of the medication. Other common side effects include dry mouth and eyes. In older persons, antihistamines can occasionally cause urinary retention, constipation, and trouble focusing the eyes. Do not combine the medication with alcohol, or with any other medication without talking to your doctor. USE OF DIPHENHYDRAMINE: The use of diphenhydramine (Benadryl) has been recommended to control allergic symptoms. The 25 mg strength is available over- the-counter, as well as the elixir. This antihistamine is used for many symptoms. It's useful for itching, watering eyes and nose, allergic swelling, hives, and insect stings. The medication can be repeated four times daily. Age Elixir (12.5 mg/tsp) 25 mg pill 2-3 yr 1/2 tsp 4-8 yr 1 tsp 9-14 yr 2 tsp one tab adult 1-2 tabs Antihistamines may cause drowsiness, especially with the first dose. Do not operate machinery or drive while under the effects of the medication. Do not combine the medication with alcohol, or with any other medication without talking to your doctor. Clean excess clean insect bite with soap and water apply bacitracin and usually Benadryl Tylenol or Motrin for this symptoms. Please do not scratch the area and get it infected. FOLLOW-UP CARE: If you have been referred to a physician for follow-up care, call the physician s office for an appointment as you were instructed or within the next two days. If you experience worsening or a significant change in your symptoms, notify the physician immediately or return to the Emergency Department at any time for re-evaluation. Forms: Elevated Blood Pressure, Return to Work
== END 2018-02-11 13:38 | disposition home or self-care (01) ==
LOC: ER 12:43
DX: S80.862A Insect bite (nonvenomous), left lower leg, initial encounter (principal); W57.XXXA Bitten or stung by nonvenomous insect and other nonvenomous arthropods, initial encounter; Y92.821 Forest as the place of occurrence of the external cause; Y99.0 Civilian activity done for income or pay; Z86.14 Personal history of Methicillin resistant Staphylococcus aureus infection
CPT/HCPCS: 99281

== ENCOUNTER 2018-03-09 12:05 | Emergency (ER) | payer OTHER ==
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
[2018-03-09 13:18] LABS: ABSOLUTE EOSINOPHILS # (AUTO) 0.1 10^3/uL (0.0-0.6); ABSOLUTE LYMPHOCYTES (AUTO) 1.5 10^3/uL (0.5-4.7); ABSOLUTE MONOCYTES (AUTO) 0.3 10^3/uL (0.1-1.4); ABSOLUTE NEUT (AUTO) 2.1 10^3/uL (1.7-8.2); BASOPHILS % (AUTO) 0.8 % (0-2); EOSINOPHILS % (AUTO) 1.6 % (0-6); HEMATOCRIT 44.1 % (37.9-51.0); HEMOGLOBIN 14.5 g/dL (13.5-17.0); LYMPHOCYTES % (AUTO) 37.5 % (13-45); MEAN CORPUSCULAR HEMOGLOBIN 26.2 pg (27.0-33.4); MEAN CORPUSCULAR VOLUME 79 fl (80-97); MONOCYTES % (AUTO) 7.7 % (3-13); PLATELET COUNT 206 10^3/uL (150-450); RED BLOOD COUNT 5.55 10^6/uL (4.35-5.55); RED CELL DISTRIBUTION WIDTH 13.8 % (11.5-14.0); SEGMENTED NEUTROPHILS % (AUTO) 52.4 % (42-78); TOTAL CELLS COUNTED % (AUTO) 100 %
[2018-03-09 13:35] LABS: ALANINE AMINOTRANSFERASE 34 U/L (21-72); ALKALINE PHOSPHATASE 57 U/L (38-126); ANION GAP 5 (5-19); ASPARTATE AMINO TRANSFERASE 29 U/L (17-59); BILIRUBIN,DIRECT 0.4 mg/dL (0.0-0.4); BILIRUBIN,TOTAL 0.5 mg/dL (0.2-1.3); BLOOD UREA NITROGEN 20 mg/dL (7-20); CALCIUM 9.5 mg/dL (8.4-10.2); CARBON DIOXIDE 33 mmol/L (22-30); CHLORIDE 103 mmol/L (98-107); GLUCOSE 89 mg/dL (75-110); POTASSIUM 4.3 mmol/L (3.6-5.0); SODIUM 140.6 mmol/L (137-145); TOTAL PROTEIN 7.1 g/dL (6.3-8.2)
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
[2018-03-09 19:41] LABS: APPEARANCE,URINE SLIGHTLY-CLOUDY; BILIRUBIN,URINE NEGATIVE (NEGATIVE); COLOR,URINE YELLOW; GLUCOSE, URINE NEGATIVE (NEGATIVE); KETONES,URINE TRACE mg/dL (NEGATIVE); LEUKOCYTE ESTERASE,URINE TRACE (NEGATIVE); NITRITE,URINE NEGATIVE (NEGATIVE); PROTEIN,URINE NEGATIVE (NEGATIVE); URINE SPECIFIC GRAVITY 1.027; UROBILINOGEN,URINE NEGATIVE mg/dL (<2.0)
[2018-03-09 21:59] VITALS: BP 141/82
== END 2018-03-09 21:58 | disposition home or self-care (01) ==
LOC: ER 12:05
DX: M54.5 Low back pain (principal); V43.52XA Car driver injured in collision with other type car in traffic accident, initial encounter; R33.9 Retention of urine, unspecified; N39.490 Overflow incontinence; R42 Dizziness and giddiness; R11.10 Vomiting, unspecified
CPT/HCPCS: 36415; 72148; 72170; 74450; 80053; 81001; 85025; 99285

== ENCOUNTER 2018-04-27 10:13 | Emergency (ER) | payer SELFPAY ==
[2018-04-27 10:18] VITALS: BP 124/67
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
== END 2018-04-27 12:30 | disposition home or self-care (01) ==
LOC: ER 10:13
DX: H61.23 Impacted cerumen, bilateral (principal)
CPT/HCPCS: 99283

== ENCOUNTER 2018-08-13 15:35 | Emergency (ER) | payer OTHER ==
--- NOTE | 2018-08-13 16:54 | ER Document Report ---
ED Medical Screen (RME) - General Chief Complaint: Eye Problem Stated Complaint: EYE INJURY Time Seen by Provider: 08/13/18 16:39 Notes: 27-year-old male to the emergency department chief complaint of eye pain on the left. Little bit of eye pain on the right. 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 Continues to have pain in the left eye mostly. Up-to-date on all of his shots and immunizations. No other issues at this time. I have greeted and performed a rapid initial assessment of this patient. A comprehensive ED assessment and evaluation of the patient, analysis of test results and completion of the medical decision making process will be conducted by additional ED providers. TRAVEL OUTSIDE OF THE [place] IN LAST 30 DAYS: No - Related Data Allergies/Adverse Reactions: No Known Allergies Allergy (Verified 08/13/18 15:37) Past Medical History Neurological Medical History: Reports: Hx Migraine Renal/ Medical History: Denies: Hx Peritoneal Dialysis Musculoskeltal Medical History: Reports Hx Arthritis - to both hands, Reports Hx Musculoskeletal Deformity - Carpal tunnel, Reports Hx Musculoskeletal Trauma Skin Medical History: Reports Hx MRSA Psychiatric Medical History: Reports: Hx Anxiety, Hx Bipolar Disorder, Hx Depression Traumatic Medical History: Reports: Hx Fractures - Fractured legs both legs Infectious Medical History: Reports: Hx MRSA - Immunizations Immunizations up to date: Yes Hx Diphtheria, Pertussis, Tetanus Vaccination: Yes Physical Exam - Vital signs Vitals: Temp Pulse Resp BP Pulse Ox 99.2 F 55 L 16 132/72 H 96 08/13/18 15:39 08/13/18 15:39 08/13/18 15:39 08/13/18 15:39 08/13/18 15:39 Course - Vital Signs Vital signs: Temp Pulse Resp BP Pulse Ox 99.2 F 55 L 16 132/72 H 96 08/13/18 15:39 08/13/18 15:39 08/13/18 15:39 08/13/18 15:39 08/13/18 15:39
[2018-08-13] MEDS ORDERED: TETRACAINE HCL 0.5% OPH SOLN 4 ML OU ONE (19:44)
[2018-08-13] MEDS ORDERED: ERYTHROMYCIN 0.5% OPH OINT 1 GM UNIT DOSE OU SCH (20:15)
--- NOTE | 2018-08-13 20:16 | ER Document Report ---
ED General - General Chief Complaint: Eye Problem Stated Complaint: EYE PAIN Time Seen by Provider: 08/13/18 16:39 Primary Care Provider: TEZ GORDON DO [ACTIVE STAFF] - Follow up tomorrow Mode of Arrival: Ambulatory Information source: Patient, [facility] Records Notes: 27-year-old male with history of migraine headaches, bipolar disorder presents with complaint of bilateral eye pain that started this afternoon while at work. Patient describes a scratching feeling in both of his eyes left greater than right. 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 Patient does admit to sensitivity to light but denies any visual changes, headache. TRAVEL OUTSIDE OF THE [place] IN LAST 30 DAYS: No - HPI Onset: This afternoon Onset/Duration: Sudden Quality of pain: Other - Itching, scratching Severity: Mild Associated symptoms: denies: Allergy/hay fever, Chest pain, Headache, Nausea, Vomiting, Shortness of breath Exacerbated by: Other - Bright light Relieved by: Denies Similar symptoms previously: Yes Recently seen / treated by doctor: No - Related Data Allergies/Adverse Reactions: No Known Allergies Allergy (Verified 08/13/18 15:37) Past Medical History - General Information source: Patient, [facility] Records - Social History Smoking Status: Never Smoker Frequency of alcohol use: None Drug Abuse: None Lives with: Family Family History: Reviewed & Not Pertinent, Arthritis, DM, Hypertension, Malignancy Patient has suicidal ideation: No Patient has homicidal ideation: No Neurological Medical History: Reports: Hx Migraine Renal/ Medical History: Denies: Hx Peritoneal Dialysis Musculoskeletal Medical History: Reports Hx Arthritis - to both hands, Reports Hx Musculoskeletal Deformity - Carpal tunnel, Reports Hx Musculoskeletal Trauma Skin Medical History: Reports Hx MRSA Psychiatric Medical History: Reports: Hx Anxiety, Hx Bipolar Disorder, Hx Depression Traumatic Medical History: Reports: Hx Fractures - Fractured legs both legs Infectious Medical History: Reports: Hx MRSA - Immunizations Immunizations up to date: Yes Hx Diphtheria, Pertussis, Tetanus Vaccination: Yes Review of Systems - Review of Systems Notes: REVIEW OF SYSTEMS: CONSTITUTIONAL : Denies fever, chills, or sweats. Denies recent illness. Denies weight loss, recent hospitalizations. EENT: Denies visual changes. Denies sore throat, oral lesions, difficulty swallowing. CARDIOVASCULAR: Denies chest pain. Denies palpitations. Denies lower extremity edema. RESPIRATORY: Denies cough. Denies shortness of breath, wheezing. GASTROINTESTINAL: Denies abdominal pain or distention. Denies nausea, vomiting, or diarrhea. Denies blood in vomitus, stools, or per rectum. Denies black, tarry stools. Denies constipation. GENITOURINARY: Denies difficulty urinating, painful urination, frequency, blood in urine, testicular pain or penile discharge. MUSCULOSKELETAL: Denies back or neck pain or stiffness. Denies joint pain or swelling. SKIN: Denies rash, lesions or sores. HEMATOLOGIC : Denies easy bruising or bleeding. LYMPHATIC: Denies swollen glands. NEUROLOGICAL: Denies confusion or altered mental status. Denies loss of consciousness. Denies dizziness or lightheadedness. Denies headache. Denies weakness or paralysis. Denies problems difficulty with ambulation, slurred speech. Denies sensory loss, numbness, or tingling. Denies seizures. PSYCHIATRIC: Denies anxiety or stress. Denies depression, suicidal ideation, or Physical Exam - Vital signs Vitals: Temp Pulse Resp BP Pulse Ox 99.2 F 55 L 16 132/72 H 96 08/13/18 15:39 08/13/18 15:39 08/13/18 15:39 08/13/18 15:39 08/13/18 15:39 - Notes Notes: PHYSICAL EXAMINATION: GENERAL: Well-appearing, well-nourished and in no acute distress. HEAD: Atraumatic, normocephalic. EYES: Pupils equal round and reactive to light, extraocular movements intact, sclera anicteric, conjunctiva are normal. No floor seen uptake. No foreign body appreciated when lid inverted. No evidence of corneal abrasion. Initially patient seemed to have a small area of white debris in the right eye in the right lower portion of his conjunctive a but on slit lamp exam it is no longer there. ENT: Nares patent, oropharynx clear without exudates. Moist mucous membranes. NECK: Normal range of motion, supple without lymphadenopathy LUNGS: Breath sounds clear to auscultation bilaterally and equal. No wheezes rales or rhonchi. HEART: Regular rate and rhythm without murmurs ABDOMEN: Soft, nontender, nondistended abdomen. No guarding, no rebound. No masses appreciated. Musculoskeletal: Normal range of motion, no pitting or edema. No cyanosis. NEUROLOGICAL: Cranial nerves grossly intact. Normal speech, normal gait. Normal sensory, motor exams PSYCH: Normal mood, normal affect. SKIN: Warm, Dry, normal turgor, no rashes or lesions noted. Course - Re-evaluation Re-evalutation: Temp Pulse Resp BP Pulse Ox 98.5 F 74 17 151/73 H 97 08/13/18 20:41 08/13/18 20:41 08/13/18 20:41 08/13/18 20:41 08/13/18 20:41 08/14/18 00:06 19-year-old male presents with bilateral eye pain left greater than right. Vital signs reviewed upon arrival. Patient does not appear toxic or dehydrated. He is in no acute distress. Patient's conjunctivae are not erythematous. There was no fluorescein uptake. I initially saw a small white piece of debris in the right eye which after irrigation was no longer present. Tetracaine drops were instilled, eyes were irrigated and patient reported relief of symptoms. Erythromycin ophthalmic ointment was given for lubrication, comfort. Patient given ophthalmology follow-up instructions. Patient was evaluated and treated as appropriate for the patient's presenting symptoms and complaint, with consideration of any critical or life threatening conditions that may be associated with their obtained history and exam as noted above. All results were discussed with patient. Patient provided the opportunity to ask questions, and express concerns. Patient was educated on treatments based on their presumed diagnosis as noted above. At this time we will discharge the patient with return precautions and follow-up recommendations. Verbal discharge instructions given a the bedside. Medication warnings reviewed. Patient is in agreement with this plan and has verbalized understanding of return precautions. After careful consideration I feel that that patient can be safely discharged from the emergency department, they were advised to followup with a primary care physician in 2-3 days. Dictation on this chart was performed using voice recognition software and may result in unintended grammatical, spelling, syntax or errors. - Vital Signs Vital signs: Temp Pulse Resp BP Pulse Ox 98.5 F 74 17 151/73 H 97 08/13/18 20:41 08/13/18 20:41 08/13/18 20:41 08/13/18 20:41 08/13/18 20:41 Procedures - Eye Procedure Bilateral Time completed: 20:00 Eye Irrigated w/ Saline (ccs): 50 Foreign body removal: Right Alcaine Drops Administered: Yes Fluorescein applied: Bilateral Antibiotic Oinment/Drps Admin: Both eyes Slit lamp used: Yes Notes: 08/14/18 00:05 No floor seen uptake. No evidence of corneal abrasion. No evidence of foreign body on slit-lamp exam although initially there was a small white foreign body in the right eye not associated with the cornea. Discharge - Discharge Clinical Impression: Sensation of foreign body in eye Foreign body of right eye Qualifiers: Encounter type: initial encounter Qualified Code(s): T15.91XA - Foreign body on external eye, part unspecified, right eye, initial encounter Condition: Good Disposition: HOME, SELF-CARE Instructions: Conjunctival Foreign Body ([facility]), Eyedrop Use ([facility]) Prescriptions: Erythromycin Base [Erythromycin Oph 1 Gm Oint Ud] 1 applic OU Q4H 5 Days #1 tube Forms: Elevated Blood Pressure Referrals: TEZ GORDON DO [ACTIVE STAFF] - Follow up tomorrow
[2018-08-13 20:43] VITALS: BP 151/73
== END 2018-08-13 20:43 | disposition home or self-care (01) ==
LOC: ER 15:35
DX: T15.91XA Foreign body on external eye, part unspecified, right eye, initial encounter (principal); H57.13 Ocular pain, bilateral; X58.XXXA Exposure to other specified factors, initial encounter
CPT/HCPCS: 99283

== ENCOUNTER 2018-10-14 06:53 | Emergency (ER) | payer SELFPAY ==
[2018-10-14 06:59] VITALS: BP 156/69
--- NOTE | 2018-10-14 07:26 | ER Document Report ---
ED General - General Chief Complaint: Shortness Of Breath Stated Complaint: SORE THROAT AND SHORTNESS OF BREATH Time Seen by Provider: 10/14/18 07:20 Notes: 27-year-old healthy male presents with cough sore throat shortness of breath since last night coughing worse at night, felt like "my lungs notes but" now feels better. Also diarrhea but no vomiting or fever or body aches. No ill contacts. Non-smoker. Otherwise healthy. TRAVEL OUTSIDE OF THE [place] IN LAST 30 DAYS: No - Related Data Allergies/Adverse Reactions: No Known Allergies Allergy (Verified 08/13/18 15:37) Past Medical History - General Information source: Patient - Social History Smoking Status: Unknown if Ever Smoked Family History: Reviewed & Not Pertinent, Arthritis, DM, Hypertension, Malignancy Patient has suicidal ideation: No Patient has homicidal ideation: No Neurological Medical History: Reports: Hx Migraine Renal/ Medical History: Denies: Hx Peritoneal Dialysis Musculoskeletal Medical History: Reports Hx Arthritis - to both hands, Reports Hx Musculoskeletal Deformity - Carpal tunnel, Reports Hx Musculoskeletal Trauma Skin Medical History: Reports Hx MRSA Psychiatric Medical History: Reports: Hx Anxiety, Hx Bipolar Disorder, Hx Depression Traumatic Medical History: Reports: Hx Fractures - Fractured legs both legs Infectious Medical History: Reports: Hx MRSA - Immunizations Immunizations up to date: Yes Hx Diphtheria, Pertussis, Tetanus Vaccination: Yes Review of Systems - Review of Systems Notes: REVIEW OF SYSTEMS GEN: Denies fever, chills, weight loss ENT: Denies sore throat, nasal discharge, ear pain EYES: Denies blurry vision, eye pain, discharge CV: Denies chest pain, palpitations, edema RESP: Cough shortness of breath GI: Denies abdominal pain, nausea, vomiting, diarrhea MSK: Denies joint pain/swelling, edema, SKIN: Denies rash, skin lesions LYMPH: Denies swollen glands/lymph nodes NEURO: Denies headache, focal weakness or numbness, dizziness PSYCH: Denies depression, suicidal or homicidal ideation PHYSICAL EXAMINATION General: No acute distress, well-nourished Head: Atraumatic, normocephalic ENT: Mouth normal, oropharynx moist, no exudates or tonsillar enlargement Eyes: Conjunctiva normal, pupils equal, lids normal Neck: No JVD, supple, no guarding CVS: Normal rate, regular rhythm, no murmurs Resp: No resp distress, equal and normal breath sounds bilaterally GI: Nondistended, soft, no tenderness to palpation, no rebound or guarding Ext: No deformities, no edema, normal range of motion in upper and lower ext Back: No CVA or midline TTP Skin: No rash, warm Lymphatic: No lymphadeopathy noted Neuro: Awake, alert. Face symmetric. GCS 15. Physical Exam - Vital signs Vitals: Temp Pulse Resp BP Pulse Ox 98.4 F 59 L 22 H 156/69 H 96 10/14/18 06:58 10/14/18 06:58 10/14/18 06:58 10/14/18 06:58 10/14/18 06:58 Course - Re-evaluation Re-evalutation: 10/14/18 07:25 Healthy young male presents with coughing fits with shortness of breath now resolved. No wheezing normal vision. X-ray ruled out pneumonia. Will prescribe Phenergan codeine for cough which should also help with his diarrhea, does not have fever and I am not concerned for sepsis right now. I have discussed with the patient there likely diagnosis, aftercare plan, follow-up plans and my usual and customary return precautions. They verbalized understanding of this. - Vital Signs Vital signs: Temp Pulse Resp BP Pulse Ox 98.4 F 59 L 22 H 156/69 H 96 10/14/18 06:58 10/14/18 06:58 10/14/18 06:58 10/14/18 06:58 10/14/18 06:58 Discharge - Discharge Clinical Impression: Viral upper respiratory illness Condition: Good Disposition: HOME, SELF-CARE Additional Instructions: Please follow-up with your primary care doctor Prescriptions: Promethazine HCl/Codeine [Prometh-Codein 6.25-10 mg/5 ml] 5 ml PO TIDP PRN #60 syrup PRN Reason:
--- NOTE | 2018-10-14 07:58 | RADIOLOGY REPORT (SQ) ---
EXAM DESCRIPTION: XR CHEST 2 VIEWS COMPLETED DATE/TME: 10/14/2018 07:26 CLINICAL HISTORY: 27 years, Male, WSOB, cough COMPARISON: None. NUMBER OF VIEWS: Two TECHNIQUE: Two views of the chest LIMITATIONS: None. FINDINGS: The lungs are clear. The heart is normal in size. There is no pneumothorax or pleural effusion. The bones are unremarkable. IMPRESSION: No acute cardiopulmonary abnormality copyright 2010 [employer]- All Rights Reserved
== END 2018-10-14 08:04 | disposition home or self-care (01) ==
LOC: ER 06:53
DX: J06.9 Acute upper respiratory infection, unspecified (principal); B34.9 Viral infection, unspecified; R06.02 Shortness of breath; Z86.14 Personal history of Methicillin resistant Staphylococcus aureus infection
CPT/HCPCS: 71046; 99283

== ENCOUNTER 2019-11-25 16:23 | Emergency (ER) | payer SELFPAY ==
[2019-11-25 16:32] VITALS: BP 130/57
[2019-11-25] MEDS ORDERED: DEXAMETHASONE SOD PHOS INJ 10 MG/1 ML VIAL IM ONE (17:23)
[2019-11-25] MEDS ORDERED: KETOROLAC TROMETHAMINE 60 MG/2 ML SDV IM ONE (17:23)
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
== END 2019-11-25 17:30 | disposition home or self-care (01) ==
LOC: ER 16:23
DX: M54.9 Dorsalgia, unspecified (principal)
CPT/HCPCS: 99283; 96372; J1885; J1100

== ENCOUNTER 2019-11-29 16:40 | Emergency (ER) | payer SELFPAY ==
[2019-11-29] MEDS ORDERED: KETOROLAC TROMETHAMINE 60 MG/2 ML SDV IM ONE (17:24)
[2019-11-29] MEDS ORDERED: DIAZEPAM INJ 10 MG/2 ML DISP.SYRIN IM ONE (17:24)
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
--- NOTE | 2019-11-29 18:42 | RADIOLOGY REPORT (SQ) ---
EXAM DESCRIPTION: CT LUMBAR SPINE WITHOUT IMAGES COMPLETED DATE/TIME: 11/29/2019 6:32 pm REASON FOR STUDY: severe back pain, persistent, no recent injury COMPARISON: None. TECHNIQUE: Axial images acquired through the lumbar spine without intravenous contrast. Images revi ewed with lung, soft tissue and bone windows. Reconstructed coronal and sagittal MPR images reviewed . All images stored on PACS. All CT scanners at this facility use dose modulation, iterative reconstruction, and/or weight based d osing when appropriate to reduce radiation dose to as low as reasonably achievable (ALARA). [facility]: Dose Right [facility]: CareDose [facility]: Dose Right [facility]: Teradose 4D [facility]: [employer] RADIATION DOSE: mGy. LIMITATIONS: None. FINDINGS: SEGMENTATION: Normal. No transitional anatomy. ALIGNMENT: Normal. VERTEBRAL BODIES: No fractures. No dislocation. No acute findings. DISCS: No significant protrusions. Study limited by lack of intrathecal contrast. PEDICLES, TRANSVERSE PROCESSES: No fractures. No dislocation. No acute findings. FACETS, POSTERIOR ELEMENTS: No fractures. No dislocation. No spinal stenosis. HARDWARE: None in the spine. VISUALIZED RIBS: No fractures. SOFT TISSUES: No significant or acute finding in adjacent soft tissues. OTHER: No other significant finding. IMPRESSION: No significant findings. TECHNICAL DOCUMENTATION: JOB ID: [id number] [place]-72 Quality ID # [id number]: Final reports with documentation of one or more dose reduction techniques (e.g., Au tomated exposure control, adjustment of the mA and/or kV according to patient size, use of iterative reconstruction technique) 2010 [employer]- All Rights Reserved Reading location - IP/workstation name: [email or web address]
--- NOTE | 2019-11-29 18:44 | RADIOLOGY REPORT (SQ) ---
EXAM DESCRIPTION: CT THORACIC SPINE WITHOUT IMAGES COMPLETED DATE/TIME: 11/29/2019 6:32 pm REASON FOR STUDY: severe back pain, persistent, no recent injury COMPARISON: None. TECHNIQUE: Axial images acquired through the thoracic spine without intravenous contrast. Images re viewed with lung, soft tissue and bone windows. Reconstructed coronal and sagittal MPR images review ed. Images stored on PACS. All CT scanners at this facility use dose modulation, iterative reconstruction, and/or weight based d osing when appropriate to reduce radiation dose to as low as reasonably achievable (ALARA). [facility]: Dose Right [facility]: CareDose [facility]: Dose Right [facility]: Teradose 4D [facility]: Smart Bocada RADIATION DOSE: CT Rad equipment meets quality standard of care and radiation dose reduction techniq ues were employed. CTDIvol: 25.2 mGy. DLP: 832 mGy-cm. mGy. LIMITATIONS: None. FINDINGS: VISUALIZED LUNGS: No acute opacities. No pneumothorax. SOFT TISSUES: No soft tissue swelling. No masses. VERTEBRAL BODIES: No fractures. No dislocation. No acute findings. DISCS: No significant disc space narrowing. ALIGNMENT: Normal. TRANSVERSE PROCESSES, POSTERIOR ELEMENTS: No fractures. No dislocation. No acute findings. HARDWARE: None in the spine. VISUALIZED RIBS: No fractures. OTHER: No other significant finding. IMPRESSION: No significant findings. TECHNICAL DOCUMENTATION: JOB ID: [id number] [place]-72 Quality ID # [id number]: Final reports with documentation of one or more dose reduction techniques (e.g., Au tomated exposure control, adjustment of the mA and/or kV according to patient size, use of iterative reconstruction technique) 2010 [employer]- All Rights Reserved Reading location - IP/workstation name: [email or web address]
[2019-11-29 19:59] VITALS: BP 107/71
== END 2019-11-29 20:01 | disposition home or self-care (01) ==
LOC: ER 16:40
DX: M54.5 Low back pain (principal); M54.6 Pain in thoracic spine; G89.29 Other chronic pain
CPT/HCPCS: 99283; 96372; 72128; 72131; J3360; J1885

== ENCOUNTER 2019-12-20 14:15 | Emergency (ER) | payer SELFPAY ==
--- NOTE | 2019-12-20 15:38 | ER Document Report ---
ED General - General Chief Complaint: Shortness Of Breath Stated Complaint: SHORT OF BREATH,HEADACHE Notes: Patient is a 29-year-old male with no significant past medical history presents the emergency department with chief complaint of shortness of breath and headache that began this morning. States the headache is global in nature. States he took some Tylenol without any improvement. States the shortness of breath is mild. Denies any associated cough. Denies any fever, chills or night sweats. No lower extremity pain or swelling, hemoptysis, chest pain, abdominal pain, vomiting or diarrhea. No recent travel. Patient admits to 2 sick contacts at work that were both COVID positive. TRAVEL OUTSIDE OF THE [place] IN LAST 30 DAYS: No - Related Data Allergies/Adverse Reactions: No Known Allergies Allergy (Verified 11/29/19 17:15) Past Medical History - Social History Smoking Status: Unknown if Ever Smoked Family History: Reviewed & Not Pertinent, Arthritis, DM, Hypertension, Malignancy Neurological Medical History: Reports: Hx Migraine Renal/ Medical History: Denies: Hx Peritoneal Dialysis Musculoskeletal Medical History: Reports Hx Arthritis - to both hands, Reports Hx Musculoskeletal Deformity - Carpal tunnel, Reports Hx Musculoskeletal Trauma Skin Medical History: Reports Hx MRSA Psychiatric Medical History: Reports: Hx Anxiety, Hx Bipolar Disorder, Hx D epression Traumatic Medical History: Reports: Hx Fractures - Fractured legs both legs Infectious Medical History: Reports: Hx MRSA - Immunizations Immunizations up to date: Yes Hx Diphtheria, Pertussis, Tetanus Vaccination: Yes Review of Systems - Review of Systems Constitutional: denies: Fever EENT: denies: Throat pain Cardiovascular: denies: Chest pain Respiratory: Short of breath. denies: Cough Gastrointestinal: denies: Abdominal pain Genitourinary: denies: Dysuria Male Genitourinary: denies: Testicular pain Musculoskeletal: denies: Muscle stiffness Skin: denies: Change in color Hematologic/Lymphatic: denies: Easy bleeding Neurological/Psychological: Headaches Physical Exam - Vital signs Vitals: Temp Pulse Resp BP Pulse Ox 98.9 F 66 16 124/73 97 12/20/19 14:20 12/20/19 14:20 12/20/19 14:20 12/20/19 14:20 12/20/19 14:20 - General General appearance: Appears well, Alert In distress: None - HEENT Head: Normocephalic, Atraumatic Eyes: Normal Conjunctiva: Normal Extraocular movements intact: Yes Eyelashes: Normal Pupils: PERRL Ears: Normal External canal: Normal Tympanic membrane: Normal Sinus: Normal Nasal: Normal Mouth/Lips: Normal Mucous membranes: Normal Pharynx: Normal Neck: Normal, Supple - Respiratory Respiratory status: No respiratory distress Chest status: Nontender Breath sounds: Normal Chest palpation: Normal - Cardiovascular Rhythm: Regular Heart sounds: Normal auscultation - Abdominal Inspection: Normal Distension: No distension Bowel sounds: Normal Tenderness: Nontender Organomegaly: No organomegaly - Neurological Neuro grossly intact: Yes Cognition: Normal Orientation: AAOx4 - Psychological Associated symptoms: Normal affect, Normal mood - Skin Skin Temperature: Warm Skin Moisture: Dry Skin Color: Normal Course - Re-evaluation Re-evalutation: 12/20/19 15:44 After leaving the room the nurse came to me and advised the patient had vomited x1. P.o. Zofran ordered. 12/20/19 16:52 Reevaluation at this time, patient states his nausea is controlled, he has had no further vomiting. States his headache is improved with Toradol. Chest x-ray is negative for any acute process per radiologist. He is nontoxic in appearance. His vitals are within normal limits. He was swabbed for COVID-19, pending the result. He will quarantine at home as discussed until a negative result is achieved and he is contacted. If positive is found he will be contacted with more information and guidance. Counseled him regarding supportive care measures. Discussed with him the importance of outpatient follow-up with his primary doctor and advised to return here or any ER immediately with any new, persistent or worsening symptoms. He verbalized understood and agreed. - Vital Signs Vital signs: Temp Pulse Resp BP Pulse Ox 98.9 F 66 16 124/73 97 12/20/19 14:20 12/20/19 14:20 12/20/19 14:20 12/20/19 14:20 12/20/19 14:20 Discharge - Discharge Clinical Impression: Person under investigation for COVID-19 Condition: Stable Disposition: HOME, SELF-CARE Instructions: COVID-19 Guidance for Persons Under Investigation Additional Instructions: Follow-up with your regular doctor in 2 to 3 days for reevaluation. Return here or any ER immediately with any new, persistent or worsening symptoms. Please self isolate/quarantine in your home as discussed until you are contacted with a negative COVID-19 result, or if the results was positive and clear contacted with that result for further instructions. Prescriptions: Ondansetron [Zofran Odt 4 mg Tablet] 4 mg PO Q8 PRN #20 tab.rapdis PRN Reason:
[2019-12-20] MEDS ORDERED: ONDANSETRON 4 MG TAB.RAPDIS PO ONE (15:40)
[2019-12-20] MEDS ORDERED: KETOROLAC TROMETHAMINE 60 MG/2 ML SDV IM ONE (15:54)
--- NOTE | 2019-12-20 16:31 | RADIOLOGY REPORT (SQ) ---
EXAM DESCRIPTION: CHEST SINGLE VIEW IMAGES COMPLETED DATE/TIME: 12/20/2019 2:50 pm REASON FOR STUDY: cough COMPARISON: 10/14/2018 EXAM PARAMETERS: NUMBER OF VIEWS: One view. TECHNIQUE: Single frontal radiographic view of the chest acquired. RADIATION DOSE: NA LIMITATIONS: None. FINDINGS: LUNGS AND PLEURA: No opacities, masses or pneumothorax. No pleural effusion. MEDIASTINUM AND HILAR STRUCTURES: No masses. Contour normal. HEART AND VASCULAR STRUCTURES: Heart normal in size. Normal vasculature. BONES: No acute findings. HARDWARE: None in the chest. OTHER: No other significant finding. IMPRESSION: NO ACUTE RADIOGRAPHIC FINDING IN THE CHEST. TECHNICAL DOCUMENTATION: JOB ID: [id number] 2010 [employer]- All Rights Reserved Reading location - IP/workstation name: [email or web address]
[2019-12-20 17:17] VITALS: BP 126/72
--- NOTE | 2019-12-20 19:07 | EKG REPORT ---
SEVERITY:- NORMAL ECG - SINUS ARRHYTHMIA : Confirmed by: Dionisio Leigh MD 20-Dec-2019 19:07:16
== END 2019-12-20 17:22 | disposition home or self-care (01) ==
LOC: ER 14:15
DX: R06.02 Shortness of breath (principal); R51 Headache; Z20.828 Contact with and (suspected) exposure to other viral communicable diseases
CPT/HCPCS: 93005; 99284; 96372; 87635; 71045; 93010; J1885; S0119; C9803

== ENCOUNTER 2019-12-21 20:00 | Emergency (ER) | payer SELFPAY ==
[2019-12-21] MEDS ORDERED: ONDANSETRON HCL INJ/PF 4 MG/2 ML SDV IV ONE (22:53)
[2019-12-21] MEDS ORDERED: NORMAL SALINE 1000 ML 1,000 ML IV ONE (22:53)
[2019-12-21 23:37] LABS: ABSOLUTE LYMPHOCYTES (AUTO) 1.1 10^3/uL (0.5-4.7); ABSOLUTE MONOCYTES (AUTO) 0.3 10^3/uL (0.1-1.4); ABSOLUTE NEUT (AUTO) 4.7 10^3/uL (1.7-8.2); BASOPHILS % (AUTO) 0.4 % (0-2); EOSINOPHILS % (AUTO) 0.7 % (0-6); HEMATOCRIT 49.6 % (37.9-51.0); HEMOGLOBIN 16.2 g/dL (13.5-17.0); LYMPHOCYTES % (AUTO) 17.5 % (13-45); MEAN CORPUSCULAR HEMOGLOBIN 26.1 pg (27.0-33.4); MEAN CORPUSCULAR HGB CONC 32.6 g/dL (32.0-36.0); MEAN CORPUSCULAR VOLUME 80 fl (80-97); MONOCYTES % (AUTO) 5.2 % (3-13); PLATELET COUNT 229 10^3/uL (150-450); RED CELL DISTRIBUTION WIDTH 13.7 % (11.5-14.0); SEGMENTED NEUTROPHILS % (AUTO) 76.2 % (42-78); TOTAL CELLS COUNTED % (AUTO) 100 %; WHITE BLOOD COUNT 6.1 10^3/uL (4.0-10.5)
--- NOTE | 2019-12-21 23:46 | ER Document Report ---
ED General - General Chief Complaint: Nausea/Vomiting Stated Complaint: FEVER/VOMITING/SHORTNESS OF BREATH Time Seen by Provider: 12/21/19 22:39 Notes: Patient is a 29-year-old male who presents emergency department with a chief complaint of shortness of breath, fever, vomiting, and a headache. Patient was seen here yesterday and was tested for COVID-19. His results are not back yet. Patient states that he took Zofran, but continued to vomit. She denies any abdominal pain. Patient states that he did have 2 contacts at work that were tested positive for COVID-19. Chest x-ray from yesterday was normal. TRAVEL OUTSIDE OF THE [place] IN LAST 30 DAYS: No - Related Data Allergies/Adverse Reactions: No Known Allergies Allergy (Verified 11/29/19 17:15) Past Medical History - Social History Smoking Status: Never Smoker Frequency of alcohol use: None Drug Abuse: None Family History: Reviewed & Not Pertinent, Arthritis, DM, Hypertension, Malignancy Patient has homicidal ideation: No Neurological Medical History: Reports: Hx Migraine Renal/ Medical History: Denies: Hx Peritoneal Dialysis Musculoskeletal Medical History: Reports Hx Arthritis - to both hands, Reports Hx Musculoskeletal Deformity - Carpal tunnel, Reports Hx Musculoskeletal Trauma Skin Medical History: Reports Hx MRSA Psychiatric Medical History: Reports: Hx Anxiety, Hx Bipolar Disorder, Hx Depression Traumatic Medical History: Reports: Hx Fractures - Fractured legs both legs Infectious Medical History: Reports: Hx MRSA - Immunizations Immunizations up to date: Yes Hx Diphtheria, Pertussis, Tetanus Vaccination: Yes Review of Systems - Review of Systems Notes: REVIEW OF SYSTEMS: CONSTITUTIONAL : Denies recent illness. Denies recent unintentional weight loss. Denies fever, chills, or sweats. EENT: Denies eye, ear, throat, or mouth pain, discharge, or symptoms. Denies nasal or sinus congestion. CARDIOVASCULAR: Denies chest pain. RESPIRATORY: Denies shortness of breath, cough, congestion, difficulty coleman athing, or wheezing. GASTROINTESTINAL: See HPI. GENITOURINARY: Denies difficulty urinating, burning, blood in urine, urgency or frequency. MUSCULOSKELETAL: Denies neck and back pain. Denies joint pain or swelling. SKIN: Denies rash, itchiness, or lesions HEMATOLOGIC : Denies easy bruising or bleeding. LYMPHATIC: Denies swollen, painful, enlarged glands. NEUROLOGICAL: Denies no numbness or tingling denies weakness. Denies headache. Denies altered mental status. Denies alteration in speech. PSYCHIATRIC: Denies stress, anxiety, alteration in sleep patterns, or depression. All other systems reviewed and negative. Physical Exam - Vital signs Vitals: Temp Pulse Resp BP Pulse Ox 99.6 F 84 16 140/73 H 99 12/21/19 20:04 12/21/19 20:04 12/21/19 20:04 12/21/19 20:04 12/21/19 20:04 - Notes Notes: PHYSICAL EXAMINATION: GENERAL: Appears well, healthy, well-nourished, no acute distress. HEAD: Normocephalic, atraumatic. EYES: PERRL, conjunctiva normal, all extraocular movements intact, sclera nonicteric ENT: Moist mucous membranes. NECK: Supple, no noticeable swelling, redness, rash. Normal range of motion. LUNGS: Equal breath sounds bilaterally and clear to auscultation. No wheezes rales or rhonchi. CARDIOVASCULAR: S1-S2, regular rate, regular rhythm. Radial pulses 2+, normal. ABDOMEN: Normoactive bowel sounds. Soft, nontender, no guarding, no rebound tenderness, and no masses palpated. EXTREMITIES: Normal strength and range of motion, no pitting or edema. No cyanosis. NEUROLOGICAL: Moves all extremities upon command. Strength 5/5 in all extremities. PSYCH: Normal mood, normal affect. SKIN: Warm, dry. No rash, lesions, ulcerations noted. Normal skin turgor. Course - Re-evaluation Re-evalutation: 12/22/19 00:51 Patient states that he feels better in regards to his nausea, but continues to have a headache. He has not vomited since he received IV fluids and Zofran. Hematology is unremarkable. Chemistries are also unremarkable other than a slightly elevated BUN and protein. Lipase was normal and LFTs were normal. Patient will continue in quarantine. He is in agreement with this plan. Follow-up precautions were given. Verbal discharge instructions were given to the patient. They verbalized understanding. They are stable for discharge. - Vital Signs Vital signs: Temp Pulse Resp BP Pulse Ox 97.9 F 87 13 118/71 98 12/22/19 01:01 12/22/19 01:01 12/22/19 01:01 12/22/19 01:01 12/22/19 01:01 - Laboratory Result Diagrams: 12/21/19 23:10 12/21/19 23:10 Laboratory results interpreted by me: 12/21/19 12/21/19 23:10 23:10 RBC 6.20 H MCH 26.1 L Carbon Dioxide 31 H BUN 24 H Total Protein 8.3 H Discharge - Discharge Clinical Impression: Person under investigation for COVID-19 Headache Qualifiers: Headache type: unspecified Headache chronicity pattern: acute headache Intractability: not intractable Qualified Code(s): R51 - Headache Nausea and vomiting Qualifiers: Vomiting type: unspecified Vomiting Intractability: unspecified Qualified Code(s): R11.2 - Nausea with vomiting, unspecified Condition: Stable Disposition: HOME, SELF-CARE Instructions: Antinausea Medication ([facility]), Intravenous (IV) Fluids ([facility]) Additional Instructions: You were seen today in the emergency department for a headache, nausea, and vomiting. Your labs are normal. Please continue take Zofran. You can take 8 mg every 6 hours as needed for nausea or vomiting. Take Tylenol for headache. Stay in quarantine until your COVID results are back.
[2019-12-22 00:03] LABS: ALBUMIN 4.9 g/dL (3.5-5.0); ALKALINE PHOSPHATASE 60 U/L (38-126); ANION GAP 9 (5-19); ASPARTATE AMINO TRANSFERASE 27 U/L (17-59); BILIRUBIN,TOTAL 0.7 mg/dL (0.2-1.3); BLOOD UREA NITROGEN 24 mg/dL (7-20); CALCIUM 10.2 mg/dL (8.4-10.2); CARBON DIOXIDE 31 mmol/L (22-30); CHLORIDE 101 mmol/L (98-107); GLUCOSE 100 mg/dL (75-110); POTASSIUM 4.1 mmol/L (3.6-5.0); TOTAL PROTEIN 8.3 g/dL (6.3-8.2)
[2019-12-22] MEDS ORDERED: ACETAMINOPHEN 325 MG TABLET PO ONE (00:51)
[2019-12-22 01:02] VITALS: BP 118/71
== END 2019-12-22 01:01 | disposition home or self-care (01) ==
LOC: ER 20:00
DX: R11.2 Nausea with vomiting, unspecified (principal); R50.9 Fever, unspecified; R06.02 Shortness of breath; R51 Headache; Z20.828 Contact with and (suspected) exposure to other viral communicable diseases
CPT/HCPCS: 99284; 96361; 96374; 36415; 83690; 85025; 80053; J2405; J7030

== ENCOUNTER 2020-01-27 20:40 | Emergency (ER) | payer SELFPAY ==
--- NOTE | 2020-01-27 22:38 | ER Document Report ---
HPI - HPI Patient complains to provider of: jaw pain Time Seen by Provider: 01/27/20 22:36 Onset: Other - 6 months Onset/Duration: Persistent Quality of pain: Achy Pain Level: 1 Context: Patient presents with a six-month history of jaw pain. Patient states that his range of motion has decreased and that his jaw will occasionally lock. Patient states over the past month symptoms have been worsening. Patient denies any trauma to the jaw. Patient denies any dental problems. Associated Symptoms: denies: Fever, Headache, Nausea, Sore throat Exacerbated by: Movement Relieved by: Denies Similar symptoms previously: No Recently seen / treated by doctor: No - ROS ROS below otherwise negative: Yes Systems Reviewed and Negative: Yes All other systems reviewed and negative - CONSTITUTIONAL Constitutional: DENIES: Fever - EENT Notes: Jaw pain - GASTROINTESTINAL Gastrointestinal: DENIES: Nausea, Patient vomiting - DERM Skin Color: Normal Skin Problems: None Past Medical History - General Information source: Patient - Social History Smoking Status: Never Smoker Frequency of alcohol use: None Drug Abuse: None 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 Family History: Reviewed & Not Pertinent, Arthritis, DM, Hypertension, Malignancy Neurological Medical History: Reports: Hx Migraine Renal/ Medical History: Denies: Hx Peritoneal Dialysis Musculoskeletal Medical History: Reports Hx Arthritis - to both hands, Reports Hx Musculoskeletal Deformity - Carpal tunnel, Reports Hx Musculoskeletal Trauma Skin Medical History: Reports Hx MRSA Psychiatric Medical History: Reports: Hx Anxiety, Hx Bipolar Disorder, Hx Depression Traumatic Medical History: Reports: Hx Fractures - Fractured legs both legs Infectious Medical History: Reports: Hx MRSA Surgical Hx: Negative - Immunizations Immunizations up to date: Yes Hx Diphtheria, Pertussis, Tetanus Vaccination: Yes Vertical Provider Document - CONSTITUTIONAL Agree With Documented VS: Yes Exam Limitations: No Limitations General Appearance: WD/WN, No Apparent Distress - INFECTION CONTROL TRAVEL OUTSIDE OF THE [place] IN LAST 30 DAYS: No - HEENT HEENT: Atraumatic, Normocephalic Notes: Bilateral TMJ joint tenderness, worse with range of motion, normal bite. Patient able to open mouth greater than 3 cm without difficulty. No obvious dental decay. - NECK Neck: Normal Inspection, Supple. negative: Lymphadenopathy-Left, Lymphadenopathy-Right - RESPIRATORY Respiratory: Breath Sounds Normal, No Respiratory Distress - CARDIOVASCULAR Cardiovascular: Regular Rate, Regular Rhythm - MUSCULOSKELETAL/EXTREMETIES Musculoskeletal/Extremeties: MAEW - NEURO Level of Consciousness: Awake, Alert, Appropriate Motor/Sensory: No Motor Deficit - DERM Integumentary: Warm, Dry, No Rash Course - Re-evaluation Re-evalutation: 01/27/20 22:41 Patient with bilateral TMJ joint tenderness, patient complains of increased pain with opening his jaw to the extremes of his range of motion. Patient encouraged to be on a soft diet and to take anti-inflammatory medication to help with his symptoms. Patient encouraged to follow-up with ENT for evaluation. Discussed worsening symptoms that patient should return immediately for. - Vital Signs Vital signs: Temp Pulse Resp BP Pulse Ox 98.7 F 51 L 16 131/66 H 99 01/27/20 20:47 01/27/20 20:47 01/27/20 20:47 01/27/20 20:47 01/27/20 20:47 Discharge - Discharge Clinical Impression: TMJ arthralgia Qualifiers: Laterality: bilateral Qualified Code(s): M26.623 - Arthralgia of bilateral temporomandibular joint Condition: Stable Disposition: HOME, SELF-CARE Instructions: Anti-Inflammatory Medication ([facility]), Temporomandibular Joint Syndrome ([facility]) Additional Instructions: Return immediately for any new or worsening symptoms Followup with your primary care provider, call tomorrow to make a followup appointment Follow-up with an medical research scientist for further evaluation, call tomorrow to make a follow-up appointment Prescriptions: Naproxen [Naprosyn 250 Nmg Tablet] 1 tab PO BID #14 tablet Referrals: GARCÍA RDZ DO [ASSOCIATE] - Follow up as needed ENT [Provider Group] - Follow up tomorrow
[2020-01-27 22:43] VITALS: BP 130/70
== END 2020-01-27 22:42 | disposition home or self-care (01) ==
LOC: ER 20:40
DX: M26.623 Arthralgia of bilateral temporomandibular joint (principal)
CPT/HCPCS: 99282

== ENCOUNTER 2020-02-17 19:47 | Emergency (ER) | payer SELFPAY ==
[2020-02-17 19:56] VITALS: BP 130/73
--- NOTE | 2020-02-17 20:10 | ER Document Report ---
ED GI/ - General Chief Complaint: Diarrhea Stated Complaint: DIARRHEA Time Seen by Provider: 02/17/20 19:57 Primary Care Provider: [facility] [Provider Group] - Follow up as needed [facility] [Provider Group] - Follow up as needed Mode of Arrival: Ambulatory Information source: Patient Notes: 29-year-old male presented to ED for diarrhea since last night for 5 times last night and has not had any diarrhea since 10 AM this morning. He states he ate that Tejinder a few days ago he does not know if this is what caused this. He states a few weeks ago she came into the emergency room vomiting head pounding and was tested for COVID and it was negative. He states that the daughter both at work will not let him come to work unless he comes emergency room gets a work note. He denies any abdominal pain nausea vomiting or fever. He states he has not had any diarrhea since 10 AM. Constitutional: Negative for fever. HENT: Negative for sore throat. Eyes: Negative for visual changes. Cardiovascular: Negative for chest pain. Respiratory: Negative for shortness of breath. Gastrointestinal: Negative for abdominal pain, vomiting she had diarrhea last night and this morning but no diarrhea now Genitourinary: Negative for dysuria. Musculoskeletal: Negative for back pain. Skin: Negative for rash. Neurological: Negative for headaches, weakness or numbness. 10 point ROS negative except as marked above and in HPI. VITAL SIGNS: Within normal limits. GENERAL: No acute distress, non-toxic appearance. HEAD: Normal with no signs of head trauma. EYES: PERRLA, EOMI, conjunctiva normal, no discharge. EARS: Hearing grossly intact. NOSE: Normal. THROAT: Oropharynx is normal. NECK: Normal range of motion, no tenderness, supple, no lymphadenopathy, No adenopathy, no JVD. CHEST: Clear breath sounds bilaterally. No wheezes, rales, or rhonchi. CARDIAC: Regular rate and rhythm. S1 and S2, without murmurs, gallops, or rubs. VASCULAR: No Edema. Peripheral pulses normal and equal in all extremities. ABDOMEN: Normal and soft with no tenderness, no masses or pulsatile masses. GASTROINTESTINAL: Bowel sounds normal GENITOURINARY: Normal, No tenderness LYMPATHTIC: No lymphadenopathy noted. MUSCULOSKELETAL: Good range of motion of all major joints. Extremities without clubbing, cyanosis or edema. NEUROLOGICAL: Alert and oriented x 3. No focal sensory or strength deficits. Speech normal. Follows commands appropriately. PSYCHIATRIC: Normal Affect, judgement and mood. SKIN: Normal appearance with no rashes or lesions. TRAVEL OUTSIDE OF THE [place] IN LAST 30 DAYS: No - HPI Patient complains to provider of: Diarrhea. No: Vomiting Onset: This morning - Last night and this morning Timing/Duration: Gone Quality of pain: No pain Severity in ED: None Pain Level: Denies Associated symptoms: Diarrhea. denies: Nausea, Vomiting Exacerbated by: Denies Relieved by: Denies Similar symptoms previously: Yes Recently seen / treated by doctor: Yes - Related Data Allergies/Adverse Reactions: No Known Allergies Allergy (Verified 01/27/20 22:33) Past Medical History - General Information source: Patient - Social History Smoking Status: Never Smoker Frequency of alcohol use: None Drug Abuse: None Lives with: Family Family History: Reviewed & Not Pertinent, Arthritis, DM, Hypertension, Malignancy Patient has suicidal ideation: No Patient has homicidal ideation: No - Past Medical History Cardiac Medical History: Reports: None Pulmonary Medical History: Reports: None EENT Medical History: Reports: None Neurological Medical History: Reports: Hx Migraine Endocrine Medical History: Reports: None Renal/ Medical History: Reports: None Malignancy Medical History: Reports None GI Medical History: Reports: None Musculoskeletal Medical History: Reports Hx Arthritis - to both hands, Reports Hx Musculoskeletal Deformity - Carpal tunnel, Reports Hx Musculoskeletal Trauma Skin Medical History: Reports Hx MRSA Psychiatric Medical History: Reports: Hx Anxiety, Hx Bipolar Disorder, Hx Depression Traumatic Medical History: Reports: Hx Fractures - Fractured legs both legs Infectious Medical History: Reports: Hx MRSA Surgical Hx: Negative Past Surgical History: Reports: None - Immunizations Immunizations up to date: Yes Hx Diphtheria, Pertussis, Tetanus Vaccination: Yes Physical Exam - Vital signs Vitals: Temp Pulse Resp BP Pulse Ox 99.0 F 59 L 18 130/73 H 98 02/17/20 19:55 02/17/20 19:55 02/17/20 19:55 02/17/20 19:55 02/17/20 19:55 Course - Re-evaluation Re-evalutation: 02/17/20 22:05 Patient states he had no symptoms at this time no nausea no vomiting no fever no abdominal pain. He has no tenderness to palpation. He states he has had no diarrhea since 10 AM. He states he mainly just needs a work note so that he can go to work tomorrow. I did instruct him if he had any diarrhea at all tonight he did need to be reevaluated before he went to work. Patient verbalized understanding and agreement with this plan and he was discharged home. - Vital Signs Vital signs: Temp Pulse Resp BP Pulse Ox 99.0 F 59 L 18 130/73 H 98 02/17/20 19:55 02/17/20 19:55 02/17/20 19:55 02/17/20 19:55 02/17/20 19:55 Discharge - Discharge Clinical Impression: Viral illness Condition: Stable Disposition: HOME, SELF-CARE Additional Instructions: You state you were seen today for diarrhea last night and this morning. You state you have not had any diarrhea since 10 AM this morning. You state you have to have a work note in order to be able to go back to work tomorrow. You state you have not had any fever or any nausea or vomiting. You state that you are not having any abdominal pain at all. DIARRHEA, NON-SPECIFIC: Diarrhea means frequent, watery stools. There are many causes. Any problem that keeps the intestinal tract from absorbing water from the stool can lead to diarrhea. A sudden new diarrhea problem is usually caused by a virus, food sensitivity, toxic bacteria, or drugs. In this case, we expect the problem to go away soon. Testing is done only if you seem seriously ill from the diarrhea. If you have chronic diarrhea, or diarrhea that keeps coming back, we need to find out why. Chronic diarrhea can be due to inflammation of the bowels such as Crohn's disease or ulcerative colitis, food sensitivity such as intolerance to lactose or wheat protein, irritable bowel syndrome, and other problems. If your diarrhea is a significant problem but it's not clear why you have it, we'll refer you to a specialist for further testing. During an episode of diarrhea, drink small amounts (two to six ounces) of clear liquids (soft drinks, sport drinks, herb teas, broth, etc). Take fluids frequently to prevent dehydration. It's usually not a problem to take mild anti- diarrhea medication such as Kaopectate or Pepto-Bismol. As the diarrhea eases, advance to small amounts of bland food (mashed potato, toast) for 24 hours. Call the physician if blood appears in your vomit or stool, if vomiting lasts longer than 24 hours, if the abdominal pain worsens or becomes localized to one area, if you develop high fever, or if you become lightheaded and weak. VIRAL SYNDROME: The physician has diagnosed a viral infection. Viruses not only cause "colds," but can cause many different symptoms including generalized aching, fever, headache, cough, diarrhea, nausea, vomiting, and fatigue. The treatment, for the most part, is simply relief of symptoms. This means that antibiotics are usually not given. Rest, fluids, pain medications and, occasionally, medication for the specific symptoms that are most bothersome will be prescribed. Use good handwashing to avoid passing the virus to others. Shared toys should be cleaned with disinfectant. Clean the toilets, sinks, and counter surfaces in bathrooms. Launder clothing in hot water. Contact the physician if you develop any new or unusual symptoms such as severe headache, stiff neck, high fever, chest pain, productive cough, or shortness of breath. You should be rechecked if you don't see marked improvement within seven to 10 days. FOLLOW-UP CARE: If you have been referred to a physician for follow-up care, call the physicians office for an appointment as you were instructed or within the next two days. If you experience worsening or a significant change in your symptoms, notify the physician immediately or return to the Emergency Department at any time for re-evaluation. Forms: Elevated Blood Pressure, Return to Work Referrals: [facility] [Provider Group] - Follow up as needed [facility] [Provider Group] - Follow up as needed
== END 2020-02-17 20:10 | disposition home or self-care (01) ==
LOC: ER 19:47
DX: B34.9 Viral infection, unspecified (principal); R19.7 Diarrhea, unspecified
CPT/HCPCS: 99282